=== PATIENT | male | born 1990 | race Caucasian/White ===

== ENCOUNTER 2019-11-29 11:38 | Emergency (ER) | payer OTHER ==
[~2019-11-29] VITALS: Ht 177.8 cm; Wt 86.2 kg
[2019-11-29] MEDS ORDERED: AUGMENTIN 875875 MG PO (12:24)
== END 2019-11-29 12:45 | disposition home or self-care (01) ==
LOC: ED 11:38
DX: H61.22 Impacted cerumen, left ear (principal); H66.92 Otitis media, unspecified, left ear; J06.9 Acute upper respiratory infection, unspecified; F17.200 Nicotine dependence, unspecified, uncomplicated